=== PATIENT | female | born 1945 | race Caucasian/White ===

== ENCOUNTER 2017-09-28 20:36 | Inpatient (IN) | payer MEDICARE, OTHER ==
[~2017-09-28] VITALS: Ht 162.6 cm; Wt 95.1 kg
[~2017-09-28 20:36] MED LIST: ACETAMINOPHEN-H1 TA2 PO; ANAPROX DS550 MG PO; ATIVAN1 MG PO; BIOFREEZE118 ML T; CENTRUM SILVER1 TA1 PO; CIPRO250 MG PO; CLARITIN-D 12 H1 TAB PO; DARVOCET N 1001 TAB PO; DAYPRO600 M1 PO; FLEXERIL5 MG PO; FLUTICASON0.05 MG/AC NAS; IBUPROFEN PO; LEVOFLOXACIN500 MG PO; LEVOTHYROXIN0.075 MG PO; MEDROL DOSEPAK4 MG PO; NAMENDA10 MG PO; ONDANSETRON H2 MG/ML PO; PANTOPRAZOLE SO40 MG PO; PYRIDIUM200 MG PO; Q-TUSSIN100 MG/5 M PO; QUINAPRIL40 MG PO; REMERON15 M2 PO; RIVASTIGMINE TAR6 M1 PO; SIMVASTATIN80 MG PO; TRAMADOL HCL50 MG PO; VICODIN 5/500 505 MG PO; VITAMIN D31000 IU PO; ZYPREXA2.5 MG PO
[2017-09-28 20:47] VITALS: BP 137/72
[2017-09-28 21:22] LABS: BASO % 0.2 % (0.0-1.0); EOS % 0.1 % (1.0-4.0); HEMATOCRIT 43.2 % (37.0-47.0); HEMOGLOBIN 13.7 g/dl (12.0-16.0); LYMPH # 1.3 10*3/uL (1.3-4.4); LYMPH % 10.3 % (27.0-41.0); MEAN CELL VOLUME 93.7 fl (81.0-99.0); MEAN CORPUSCULAR HGB 29.7 pg (27.0-31.0); MEAN CORPUSCULAR HGB CONC 31.7 g/dl (33.0-37.0); MEAN PLATELET VOLUME 11.8 fl (9.6-12.3); MONO # 0.9 10*3/uL (0.1-1.0); MONO % 7.5 % (3.0-9.0); NEUT # 10.1 10*3/uL (2.3-7.9); NEUT % 81.6 % (47.0-73.0); PLATELET COUNT AUTOMATED 157 10*3/uL (130-400); RED BLOOD COUNT 4.61 10*6/uL (4.10-5.10); RED CELL DISTRI WIDTH 14.3 % (0-14.5); WHITE BLOOD COUNT 12.3 10*3/uL (4.8-10.8)
[2017-09-28 21:24] VITALS: BP 123/38
[2017-09-28 21:39] LABS: ALBUMIN 3.5 gm/dl (3.1-4.5); ALKALINE PHOSPHATASE 102 U/L (45-117); BUN 43 mg/dl (7-24); CHLORIDE 112 mmol/L (98-107); CREATININE 2.19 mg/dL (0.55-1.02); POTASSIUM 4.6 mmol/L (3.5-5.1); SGOT/AST 20 IU/L (3-35); SGPT/ALT 23 U/L (12-78); SODIUM 144 mmol/L (136-145); TOTAL PROTEIN 6.9 gm/dL (6.4-8.2)
[2017-09-28 21:45] LABS: TROPONIN I < 0.015 ng/ml (<0.045)
[2017-09-28 21:55] VITALS: BP 138/58
[2017-09-28 21:55] LABS: BILIRUBIN NEGATIVE (NEGATIVE); BLOOD 1+ (NEGATIVE); CLARITY CLEAR (CLEAR); COLOR YELLOW (YELLOW); GLUCOSE 3+ (NEGATIVE); KETONE TRACE (NEGATIVE); LEUKO ESTERASE NEGATIVE (NEGATIVE); NITRITE NEGATIVE (NEGATIVE); PH 5.5 (5.0-9.0); SPECIFIC GRAVITY <= 1.005 (1.005-1.030); UROBILINOGEN 0.2 E.U./dl (0.2-1.0)
[2017-09-28 22:03] LABS: BACTERIA TRACE; WBC 0-2 wbc/hpf (0-5)
[2017-09-28 22:12] LABS: ACT PARTIAL THROMBO TIME < 18.0 SECONDS (20.8-31.5)
[2017-09-28 22:23] VITALS: BP 122/51
[2017-09-28 22:40] VITALS: BP 123/60
[2017-09-28 23:12] LABS: ABG BASE EXCESS -5.3 mmol/L (-2.0-2.0); ABG HCO3 20.6 mmol/l (22-26); ABG O2 SATURATION 98.7 % (95-97); ARTERIAL BLOOD GAS PCO2 43.6 mmHg (35-45); ARTERIAL BLOOD GAS PH 7.295 (7.35-7.45)
[2017-09-29 00:15] VITALS: BP 126/93
[2017-09-29 00:41] LABS: CREATININE 2.01 mg/dL (0.55-1.02); POTASSIUM 4.2 mmol/L (3.5-5.1)
[2017-09-29 04:22] LABS: CREATININE 1.63 mg/dL (0.55-1.02); POTASSIUM 4.1 mmol/L (3.5-5.1)
[2017-09-29 05:15] LABS: FREE T4 1.27 ng/dl (0.76-1.46); PHOSPHOROUS 3.1 mg/dL (2.5-4.9)
[2017-09-29 06:30] LABS: THYROID STIM HORMONE (HS) 0.858 uIU/ml (0.358-4.75)
[2017-09-29 07:16] LABS: EOS # 0.1 10*3/uL (0.0-0.4); EOS % 1.1 % (1.0-4.0); HEMATOCRIT 40.6 % (37.0-47.0); HEMOGLOBIN 12.8 g/dl (12.0-16.0); LYMPH # 2.7 10*3/uL (1.3-4.4); LYMPH % 23.4 % (27.0-41.0); MEAN CELL VOLUME 94.6 fl (81.0-99.0); MEAN CORPUSCULAR HGB 29.8 pg (27.0-31.0); MEAN CORPUSCULAR HGB CONC 31.5 g/dl (33.0-37.0); MEAN PLATELET VOLUME 11.4 fl (9.6-12.3); MONO # 0.9 10*3/uL (0.1-1.0); NEUT # 7.6 10*3/uL (2.3-7.9); NEUT % 66.7 % (47.0-73.0); PLATELET COUNT AUTOMATED 123 10*3/uL (130-400); RED BLOOD COUNT 4.29 10*6/uL (4.10-5.10); RED CELL DISTRI WIDTH 14.2 % (0-14.5); WHITE BLOOD COUNT 11.3 10*3/uL (4.8-10.8)
[2017-09-29 07:22] LABS: CREATININE 1.34 mg/dL (0.55-1.02); POTASSIUM 4.3 mmol/L (3.5-5.1)
[2017-09-29 08:00] VITALS: BP 150/63
[2017-09-29 09:23] LABS: VITAMIN D, 25-HYDROXY 15.4 ng/mL (30-100)
[2017-09-29 10:10] LABS: CREATININE 1.23 mg/dL (0.55-1.02); POTASSIUM 4.4 mmol/L (3.5-5.1)
[2017-09-29 12:00] VITALS: BP 150/63
[2017-09-29 16:00] VITALS: BP 134/65
[2017-09-29 20:00] VITALS: BP 138/62
[2017-09-30] VITALS: BP 121/50
[2017-09-30 08:00] VITALS: BP 133/62
[2017-09-30 08:03] LABS: ALBUMIN 2.9 gm/dl (3.1-4.5); ALKALINE PHOSPHATASE 88 U/L (45-117); BUN 25 mg/dl (7-24); CHLORIDE 115 mmol/L (98-107); CREATININE 0.91 mg/dL (0.55-1.02); PHOSPHOROUS 2.2 mg/dL (2.5-4.9); POTASSIUM 3.9 mmol/L (3.5-5.1); SGOT/AST 34 IU/L (3-35); SGPT/ALT 25 U/L (12-78); SODIUM 148 mmol/L (136-145); TOTAL PROTEIN 6.1 gm/dL (6.4-8.2)
[2017-09-30 08:44] LABS: EOS # 0.2 10*3/uL (0.0-0.4); EOS % 2.2 % (1.0-4.0); HEMATOCRIT 40.2 % (37.0-47.0); HEMOGLOBIN 12.6 g/dl (12.0-16.0); LYMPH # 2.2 10*3/uL (1.3-4.4); LYMPH % 29.2 % (27.0-41.0); MEAN CELL VOLUME 95.5 fl (81.0-99.0); MEAN CORPUSCULAR HGB 29.9 pg (27.0-31.0); MEAN CORPUSCULAR HGB CONC 31.3 g/dl (33.0-37.0); MEAN PLATELET VOLUME 11.6 fl (9.6-12.3); MONO # 0.6 10*3/uL (0.1-1.0); MONO % 7.7 % (3.0-9.0); NEUT # 4.5 10*3/uL (2.3-7.9); NEUT % 60.6 % (47.0-73.0); PLATELET COUNT AUTOMATED 126 10*3/uL (130-400); RED BLOOD COUNT 4.21 10*6/uL (4.10-5.10); RED CELL DISTRI WIDTH 14.2 % (0-14.5); WHITE BLOOD COUNT 7.4 10*3/uL (4.8-10.8)
[2017-09-30] MEDS ORDERED: Lantus SC (10:44)
[2017-09-30] MEDS ORDERED: Humalog SQ (10:44)
[2017-09-30] MEDS ORDERED: HYDROCODONE-AC1 EAC1 PO (10:44)
[2017-09-30] MEDS ORDERED: NYSTOP60 GM T (10:44)
[2017-09-30 12:00] VITALS: BP 140/62
[2017-09-30] MEDS ORDERED: TEST STRIPS1 EACH MC (12:56)
[2017-09-30] MEDS ORDERED: ACCU-CHEK FAST1 EACH MC (12:56)
[2017-09-30] MEDS ORDERED: INSULIN SYRING1 EA33 MC (12:56)
[2017-09-30 16:00] VITALS: BP 133/48
== END 2017-09-30 17:26 | disposition home or self-care (01) | DRG 637 ==
LOC: ED 20:36 → EDHOLD 22:38 → 4E 22:38
PROVIDERS: Internal Medicine; Internal Medicine Hospice and Palliative Medicine; Student in an Organized Health Care Education/Training Program
DX: E11.00 Type 2 diabetes mellitus with hyperosmolarity without nonketotic hyperglycemic-hyperosmolar coma (NKHHC) (principal); N17.0 Acute kidney failure with tubular necrosis; G93.41 Metabolic encephalopathy; E87.0 Hyperosmolality and hypernatremia; E66.01 Morbid (severe) obesity due to excess calories; D69.6 Thrombocytopenia, unspecified; E87.8 Other disorders of electrolyte and fluid balance, not elsewhere classified; R31.9 Hematuria, unspecified; E78.5 Hyperlipidemia, unspecified; I10 Essential (primary) hypertension; E03.9 Hypothyroidism, unspecified; D72.823 Leukemoid reaction; F03.90 Unspecified dementia, unspecified severity, without behavioral disturbance, psychotic disturbance, mood disturbance, and anxiety; K21.9 Gastro-esophageal reflux disease without esophagitis; E55.9 Vitamin D deficiency, unspecified; D72.810 Lymphocytopenia; E11.65 Type 2 diabetes mellitus with hyperglycemia; M15.9 Polyosteoarthritis, unspecified; Z88.0 Allergy status to penicillin; Z88.8 Allergy status to other drugs, medicaments and biological substances; Z79.899 Other long term (current) drug therapy; Z82.49 Family history of ischemic heart disease and other diseases of the circulatory system; Z68.35 Body mass index [BMI] 35.0-35.9, adult

== ENCOUNTER 2020-03-14 02:41 | Emergency (ER) | payer MEDICARE ==
[~2020-03-14] VITALS: Ht 157.4 cm
[~2020-03-14 02:41] MED LIST changes: +ACCU-CHEK FAST1 EACH MC; +HYDROCODONE-AC1 EAC1 PO; +Humalog SQ; +INSULIN SYRING1 EA33 MC; +Lantus SC; +NYSTOP60 GM T; +TEST STRIPS1 EACH MC
== END 2020-03-14 04:21 | disposition other institution (70) ==
LOC: ED 02:41
DX: M54.5 Low back pain (principal); M25.551 Pain in right hip; M25.552 Pain in left hip; Z88.0 Allergy status to penicillin; Z88.8 Allergy status to other drugs, medicaments and biological substances; Z79.899 Other long term (current) drug therapy; W19.XXXA Unspecified fall, initial encounter; Y93.89 Activity, other specified; Y92.89 Other specified places as the place of occurrence of the external cause; Y99.8 Other external cause status

== ENCOUNTER 2020-09-03 04:39 | Emergency (ER) | payer MEDICARE | END 2020-09-03 07:33 | disposition home or self-care (01) | LOC: ED 04:39 | DX: M25.551 Pain in right hip (principal); M25.552 Pain in left hip; M54.9 Dorsalgia, unspecified; Z88.0 Allergy status to penicillin; Z88.8 Allergy status to other drugs, medicaments and biological substances; Z79.899 Other long term (current) drug therapy; W19.XXXA Unspecified fall, initial encounter; Y93.89 Activity, other specified; Y92.89 Other specified places as the place of occurrence of the external cause; Y99.8 Other external cause status ==